=== PATIENT | male | born 1990 | race Two or more races ===

== ENCOUNTER 2024-10-13 10:54 | Outpatient (AMB) | payer MEDICARE, MEDICAID, SELFPAY ==
--- NOTE | 2024-10-13 11:03 | MHC.PC.OV ---
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 Allergies amoxicillin Allergy (Unknown, Verified 10/13/24 11:43) Hives and throat closure lorazepam [Ativan] Allergy (Unknown, Verified 10/13/24 11:43) Vomiting penicillin V Allergy (Unknown, Verified 10/13/24 11:43) Throat closure and rash Amoxicillin Allergy (Unknown, Uncoded 10/13/24 11:43) Throat closure and hives Ativan Allergy (Unknown, Uncoded 10/13/24 11:43) Vomiting Penicillin Allergy (Unknown, Uncoded 10/13/24 11:43) Rash and throat closure Medication List - Last Reconciled 10/13/24 by Zaki Franco CNP No Known Home Meds Tobacco use date assessed: 10/13/24 Dental Screening Dental Screen Date: 10/13/24 Did you have a dental visit in the last 12 months?: No Did you have a dental problem in the last 6 months where you did not have access to dental care?: No Was dental information given to patient?: Yes HPI HPI Comments History of Present Illness Details 34-year-old male presents to establish care. He notes that he was on medication for bipolar disorder since he was 5 years ago. However, he has not been on medications for the past 10 years and his bipolar symptoms have been well controlled. Prior PCP? - [place]. Nevarez, [facility] [place] Last office visit/CPE/labs - 9-10 years ago Acute issue(s) - Acid reflux. Reports frequent acid reflux which is refractory to OTC remedy. - He reports painless skin tag to his left lower back which he wants remove. Past Medical History - Congenital heart murmur, acid reflux, bipolar disorder Surgical History - Torn ligament removal in left knee Family History - Mom: COPD, diabetes, hyperlipidemia, hypertension - MGM: Diabetes, hyperlipidemia, hypertension, skin cancer - PGF: Alcoholism, skin cancer - MGF: Myocardial infarction, substance abuse Social History - Smokes 4-5 cigarettes daily, he has been smoking for 23 years, quit x 1 year in 2018. Vape nicotine and THC occasionally. Drinks alcohol occasionally, last drink was in 06/17/2024. Occasional use of cocaine intranasally - Has been making healthy dietary choices. Walks regularly. Generally sleep well Health maintenance - Last eye exam was more than 10 years ago. Referred to Ophthalmology for routine eye care - Last dental visit was over 10 years ago; encouraged to schedule an appointment with his dentist for routine dental care - Last tetanus vaccine was more than 10 years ago; received Tdap vaccine today - Has not been vaccinated for the flu this season; declines vaccination [facility] Family History (Updated 10/13/24 @ 11:15 by Carly Leonard MA) Mother Hypertension Hyperlipemia Diabetes COPD (chronic obstructive pulmonary disease) Maternal Grandmother Hypertension Hyperlipemia Diabetes Skin cancer Paternal Grandfather Skin cancer Alcoholism Maternal Grandfather Heart attack Substance abuse Social History (Updated 10/13/24 @ 11:16 by Carly Leonard MA) Housing: Apartment Alcohol intake: current Patient Tobacco Use Status: Current everyday Tobacco user Tobacco use type: Cigarette Cigarette Packs Per Day: 0.75 Cigarettes Per Day: 5 Years Smoked: 23 e-Cigarette/Vaping Use: Currently Using Second Hand Smoke Exposure: No Substance Use Type: Crack/Cocaine and Marijuana service: No Current occupational status: employed 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 1. Little interest or pleasure in doing things: not at all 2. Feeling down, depressed, or hopeless: not at all 3. Trouble falling or staying asleep, or sleeping too much: not at all 4. Feeling tired or having little energy: not at all 5. Poor appetite or overeating: not at all 6. Feeling bad about yourself - or that you are a failure or have let yourself or your family down: not at all 7. Trouble concentrating on things, such as reading the newspaper or watching television: not at all 8. Moving or speaking so slowly that other people could have noticed. Or the opposite - being so fidgety or restless that you have been moving around a lot more than usual: not at all 9. Thoughts that you would be better off or of hurting yourself in some way: not at all Total score: 0 Depression Screening Interpretation: Negative Depression Screening Done: Yes Source: Developed by Drs. Dawit Cueto, Esther Matthews, Andrew Barfield and colleagues, with an educational candelaria from [employer]. Thrive Questionnaire Date Thrive assessed: 10/13/24 I am a: Patient What is your living situation today?: I have a steady place to live Within the past 12 months, did the food you bought not last and you didn't have the money to get more?: Sometimes True Within the past 12 months, did you worry whether your food would run out before you got money to buy more?: Sometimes True Do you have trouble paying for medicines?: No Do you have trouble getting transportation to medical appointments?: No Do you have trouble paying your heating and electricity bill?: No Do you have trouble taking care of your child, family member or friend?: No Do you have trouble with day-to-day activities such as bathing, preparing meals, shopping, managing finances, etc.?: No Are you currently unemployed and looking for a job?: No Are you interested in more education?: No Please select the resources that you would like help with: None Currently or been in a relationship where the following occur: No concerns reported and I choose not to answer THRIVE Score: 2 AUDIT C Alcohol Use Questionnaire (AUDIT-C) 1. How often do you have a drink containing alcohol?: Monthly or less 2. How many drinks containing alcohol do you have on a typical day when you are drinking?: 5 or 6 3. How often do you have six or more drinks on one occasion?: Less than monthly Total Score: 4 Score Reviewed/Action Taken: Yes DWIGHT-7 AMB Questionnaire DWIGHT-7 Date DWIGHT - 7 assessed: 10/13/24 Feeling nervous, anxious, or on edge: 0 = Not at all Not being able to stop or control worryin = Not at all Worrying too much about different things: 0 = Not at all Trouble relaxin = Not at all Being so restless that it is hard to sit still: 0 = Not at all Becoming easily annoyed or irritable: 0 = Not at all Feeling afraid as if something awful might happen: 0 = Not at all Total DWIGHT-7 score (0-4 normal; 5-9 mild; 10-14 moderate; 15-21 severe): 0 Source: Developed by Drs. Dawit Cueto, Esther Matthews, Andrew Barfield and colleagues, with an educational candelaria from [employer]. DWIGHT-7 Assessment Billing DWIGHT-7 Assessment Tool: DWIGHT-7 Assessment 73923 Review of Systems Const Details: Denies chills, Denies fatigue, Denies fever(s), Denies headache(s) and Denies weakness HEENT Denies change in vision, Denies dizziness, Denies headache(s), Denies hearing loss, Denies nasal congestion, Denies sinus pain, Denies sinus pressure and Denies sore throat Card Denies chest pain, Denies lightheadedness, Denies dyspnea and Denies other (palpitations) Resp Denies cough, Denies dyspnea and Denies wheezing GI Denies abdominal pain, Denies melena, Denies hematochezia, Denies change in bowel habits, Denies dyspepsia and Denies nausea Denies hematuria and Denies dysuria Musc Denies abnormal gait, Denies myalgias, Denies arthralgias, Denies numbness and Denies tingling Skin/Breast Reports skin tag, Denies rash, Denies unusual bruising and Denies wounds Neuro Denies abnormal gait, Denies dizziness, Denies headache(s), Denies memory loss, Denies numbness, Denies Sensory deficit (Neuro), Denies tingling and Denies weakness Psych Denies anxiety, Denies depression and Denies memory loss Endo Denies cold intolerance, Denies fatigue, Denies heat intolerance, Denies polydipsia and Denies polyuria Carter/Lymph Denies easy bleeding and Denies easy bruising Aller/Immun Denies wheezing Physical exam (Primary Care) Vital Signs: Last Vital Signs Temp 97.9 F 10/13/24 11:17 Pulse 59 10/13/24 11:17 Resp 14 10/13/24 11:17 BP 122/80 10/13/24 11:17 Pulse Ox 95 10/13/24 11:17 Oxygen Delivery Method Room Air 10/13/24 11:17 BMI result Body Mass Index 36.2 Tobacco/Smoking Status: Tobacco use Status Tobacco use date assessed 10/13/24 10/13/24 11:20 Patient Tobacco Use Status Current everyday Tobacco 10/13/24 11:20 Tobacco use type Cigarette 10/13/24 11:20 e-Cigarette/Vaping Use Currently Using 10/13/24 11:20 PHQ-9: PHQ-9 Score PHQ-9: Total score 0 10/13/24 13:10 Depression Screening Interpretation: Negative Thrive Assessment: Date of Thrive Assessment Date Thrive assessed 10/13/24 10/13/24 11:20 Currently or been in a relationship where the following occur: No concerns reported and I choose not to answer Const Other: General: no acute distress, well developed, alert and awake Nutritional Appearance: well nourished Orientation/consciousness: patient oriented x3 HENMT Head: Yes normocephalic and Yes atraumatic Ears: hearing grossly normal bilaterally and TM's normal bilaterally General nose exam: Normal external nose present and Normal nares present Mouth: Normal oral and palatal mucosa present and moist mucous membranes Teeth and gingiva: dentition normal Throat: Yes oropharynx normal Eyes Pupils: Equal, round and reactive pupils present and Pupil accommodation reflex normal EOM: EOMs intact bilaterally Neck Neck: Yes normal visual inspection, Yes no lymphadenopathy and Yes trachea midline Thyroid: Thyroid normal Carotids: no bruits Lymphatic: no lymphadenopathy noted Chest Chest palpation & inspection: normal inspection of the chest Resp Effort & Inspection: normal respiratory effort Auscultation: clear to auscultation bilaterally Cardio Rate: regular rate Rhythm: regular rhythm Heart sounds: S1 normal heart sound present, S2 normal heart sound present, no gallops, no murmurs and no rubs Bruits: no abdominal aortic bruits and no carotid bruits GI Palpation (GI): No Abdominal aortic bruit present, Soft to palpation, nontender, No hepatosplenomegaly present and No Rebound tenderness present Auscultation: normal bowel sounds General: Yes no CVA tenderness Back/Spine/Pelvis Back: no CVA tenderness Cervical Spine: cervical ROM normal and No Cervical spine tenderness Thoracic/Lumbar Spine: thoraco-lumbar ROM normal, No pain with thoraco-lumbar ROM, No thoracic spinal tenderness and No lumbar spinal tenderness Skin General: warm and dry. Normal skin color. Normal skin turgor Lesions: Moderate, round, soft, painless skin tag to left lower back Rashes: no rashes Trauma: no lacerations or abrasions Wounds: no wounds Nails: normal Neuro General: patient oriented x3, gait normal and CN's II-XI intact bilaterally Cranial nerves: Yes Equal, round and reactive pupils present Cognition (Neuro): normal cognition Gait exam (Neuro): Normal gait present Motor exam (neuro): 5/5 motor strength present throughout Sensory Exam: No Sensory deficit (Neuro) Deep tendon reflexes (DTR's): Right patellar reflex intensity grade: 2+ and Left patellar reflex intensity grade: 2+ Extrem General: Yes normal to inspection, No edema and No calf tenderness Psych Appearance: grossly normal Affect: normal affect Attitude: cooperative Thought process: Normal thought process present Immunizations Boostrix Tdap 2.5 Lf unit-8 mcg-5 Lf/0.5 mL intramuscular syringe Performing Provider: Zaki Franco CNP Performing Location: [facility] [place] [facility] Administered by: Lyn Sung RN on 10/13/24 13:08 Dose Route Admin Location Dispensed Lot Number Expiration Date [facility] Director Of Marketing Analytics 0.5 mL IM Left Deltoid 0.5 mL [id number] 06/26/26 [id number] Quisic VIS Given Date VIS Provided VIS Publication Date 10/13/24 Single Vaccine 21 Eligibility Eligibility Date Funding Source Not [facility] Eligible 10/13/24 Private Administration Comments: Vaccine administered by medical hospital sales Carly Leonard under nurse supervision. Coding Level of Care Code New Pt Level 4 (28960) New Pt Prev Care 18-39yr(88657 Diagnoses Normal physical examination, routine Z00.00 Bipolar disorder F31.9 Acid reflux K21.9 Skin lesion L98.9 Smoking 1/2 pack a day or less F17.210 Engages in vaping Z72.89 Obesity (BMI 30-39.9) E66.9 Eye exam, routine Z01.00 Laboratory tests ordered as part of a complete physical exam (CPE) Z00.00 Additional Codes DWIGHT-7 Assessment Billing - DWIGHT-7 Assessment Tool: DWIGHT-7 Assessment 72752 ([id number]) Assessment & Plan Assessment & Plan (1) Normal physical examination, routine: Code(s): Z00.00 - Encounter for general adult medical examination without abnormal findings Category: Medical Plan: No significant functional limitation noted. Continue current treatment regimen. Routine exercise and healthy diet encouraged. Perform lab work and follow-up for telehealth visit in 2-3 weeks for labs review. Return sooner with symptoms or concerns. Verbalized understanding and agreed with the plan. (2) Bipolar disorder: Code(s): F31.9 - Bipolar disorder, unspecified Category: Medical Plan: He notes that he was on medication for bipolar disorder since he was 5 years ago. However, he has not been on medications for the past 10 years and his bipolar symptoms have been well controlled. PHQ-9 and DWIGHT-7 scores are normal. Healthy diet encouraged. Follow-up as needed. Verbalized understanding and agreed with the plan. (3) Acid reflux: Code(s): K21.9 - Gastro-esophageal reflux disease without esophagitis Category: Medical Plan: Reports frequent acid reflux which is refractory to OTC remedy. Advised to maintain a healthy diet and avoid fatty or greasy foods. Omeprazole 20 mg daily ordered; advised to take as prescribed; instructed on the risks, benefits, and potential adverse reactions of the medication. Follow-up with worsening or new symptoms. Verbalized understanding and agreed with the treatment plan. (4) Skin lesion: Code(s): L98.9 - Disorder of the skin and subcutaneous tissue, unspecified Category: Medical Plan: Moderate, round, soft, painless skin tag to left lower back. He has family history of skin cancer. Referred to dermatology. (5) Smoking 1/2 pack a day or less: Code(s): F17.210 - Nicotine dependence, cigarettes, uncomplicated Category: Social Hx Plan: He smokes 4-5 cigarettes daily and has been smoking for 23 years. He quit x 1 year in 2018. He also vape nicotine and THC occasionally. Instructed on the health risks and complications of cigarette smoking and vaping nicotine and THC. Smoking and vaping cessation encouraged. Also encouraged to stop cocaine use. Declines medication treatment for nicotine use at this time. Advised to follow-up as needed. Verbalized understanding and agreed with the plan. (6) Engages in vaping: Code(s): Z72.89 - Other problems related to lifestyle Category: Medical Plan: Plan as above. (7) Obesity (BMI 30-39.9): Code(s): E66.9 - Obesity, unspecified Category: Medical Plan: He currently weighs 245 lb, BMI is 36.2. Declines referral to weight management or mortgage collector/dietitian. He notes that he has been making lifestyle changes and has lost significant amount of weight over the past years. He weighed over 400 lb 5 years ago. Healthy diet and routine exercise encouraged. Follow-up as needed. Verbalized understanding and agreed with the plan. (8) Eye exam, routine: Code(s): Z01.00 - Encounter for examination of eyes and vision without abnormal findings Category: Medical Plan: Last eye exam was more than 10 years ago. Referred to Ophthalmology for routine eye care. (9) Laboratory tests ordered as part of a complete physical exam (CPE): Code(s): Z00.00 - Encounter for general adult medical examination without abnormal findings Category: Medical Plan: Fasting labs ordered as part of a complete physical exam. Advised to fast for at least 10 hours before getting labs drawn. May drink water Verbalized understanding and agreed with treatment plan. Orders: Orders Complete Blood Count Auto Diff Today Z00.00 - Encounter for general adult medical examination without abnormal findings TSH reflex Free T4 Today Z00.00 - Encounter for general adult medical examination without abnormal findings TDaP Immunization Today Z23 - Encounter for immunization Comprehensive [place]. Panel Fast Today Z00.00 - Encounter for general adult medical examination without abnormal findings Lipid Panel Today Z00.00 - Encounter for general adult medical examination without abnormal findings Microalbumin, Random (w Creat) Today Z00.00 - Encounter for general adult medical examination without abnormal findings UA CC w/rflx Micro + Cult Today Z00.00 - Encounter for general adult medical examination without abnormal findings Vitamin D 25-OH Total Today Z00.00 - Encounter for general adult medical examination without abnormal findings Referrals Dermatology Referral L98.9 - Disorder of the skin and subcutaneous tissue, unspecified Ophthalmology Referral Z01.00 - Encounter for examination of eyes and vision without abnormal findings Medications: New omeprazole 20 mg PO DAILY 30 days 30 caps 3RF
[2024-10-13 11:17] VITALS: BP 122/80; PULSE 59; RESP 14; TEMP 36.6; O2SAT 95; BMI 36.2
--- OUTSIDE RECORDS SUMMARY | 2024-10-13 12:39 | XMS_ITS | Clinical Summary ---
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 Role Phone Unavailable Primary Care Provider Unavailabl e Allergies Active Allergy Reactions Criticality Noted Date Comments Penicillin G Hives 11/08/2022 Medications No known medications Social History Tobacco Use Types Packs/Day Years Used Date Smoking Tobacco: Former Cigarettes 0.3 0.5 Passive Smoke Exposure: Past Smokeless Tobacco: Former Tobacco Cessation:Counseling Given: Not Answered Alcohol Use Standard Drinks/Week Comments Never 0 (1 standard drink = 0.6 oz pur e alcohol) Sex and Gender Information Value Date Recorded Sex Assigned at Male 11/08/2022 12:55 PM EDT Legal Sex Male 12:51 PM EDT Gender Identity Male 11/08/2022 12:55 PM EDT Sexual Orientation Choose not to disclose 2022 12:55 PM EDT Plan of Treatment Health Maintenance Due Date Last Done Comments Dental Oral Exam 1990 Dental Prophylaxis 1990 Dental X-Ray: Bitewings 1990 Depression Screening 1990 HIV Screening 1990 SDOH Screening 1990 Alcohol/Substance Use Screening 2002 Family Planning (PISQ) 2005 Hepatitis C Screening 2008 DTaP/Tdap/Td Vaccines (1 - Tdap) 2009 Hepatitis B Vaccines (1 of 3 - 19+ 3-dose series) 2009 Tobacco Screening 11/09/2023 11/08/2022 COVID-19 Vaccine ( - 2023-2 5 season) 2024 Influenza Vaccine (#1) 2024 Dental X-Ray: Full Mouth 11/09/2025 11/08/2022 Zoster Vaccines (1 of 2) 2040 RSV Patients and Pa tients Aged 60 years or older (1 - 1-dose 75+ series) 2065 HIB Vaccines Aged Out No longer eligi ble based on patient's age to complete this topic HPV Vaccines Aged Out No longer eligi ble based on patient's age to complete this topic Hepatitis A Vaccines Aged Out No long er eligible based on patient's age to complete this topic IPV Vaccines Aged Out No longer eligi ble based on patient's age to complete this topic Meningococcal Vaccine Aged Out No ceasar pati eligible based on patient's age to complete this topic Pneumococcal Vaccine: Pediat rics (0 to 5 Years) and At-Risk Patients (6 to 49) Years) Aged Out No longer elig ible based on patient's age to complete this topic RSV under 20 months Aged Out No longe r eligible based on patient's age to complete this topic Rotavirus Vaccines Aged Out No longer eligible based on patient's age to complete this topic Procedures Procedure Name Priority Date/Time Associated Diagnosis Comments PANORAMIC RADIOGRAPHIC IMAGE Routine 11/08/2022 3:30 PM EDT from Last 3 Months or Most Recently Relevant to Health Maintenance Insurance [facility] MEDICAID STAND ADULT
== END 2024-10-13 13:04 | disposition home or self-care (01) ==
LOC: HO.HMCFM 10:55
PROVIDERS: PCP Nurse Practitioner Family; Visit Provider Nurse Practitioner Family
DX: Z00.00 Encounter for general adult medical examination without abnormal findings (principal); K21.9 Gastro-esophageal reflux disease without esophagitis; E66.9 Obesity, unspecified; F31.9 Bipolar disorder, unspecified; Z68.36 Body mass index [BMI] 36.0-36.9, adult; L98.9 Disorder of the skin and subcutaneous tissue, unspecified; F17.210 Nicotine dependence, cigarettes, uncomplicated; Z72.89 Other problems related to lifestyle; Z23 Encounter for immunization

== ENCOUNTER → 2024-10-13 10:54 | Outpatient (BNVA) | payer MEDICARE, MEDICAID, SELFPAY | PROVIDERS: PCP Nurse Practitioner Family; Visit Provider Nurse Practitioner Family | DX: Z00.01 Encounter for general adult medical examination with abnormal findings (principal); Z23 Encounter for immunization; F31.9 Bipolar disorder, unspecified; K21.9 Gastro-esophageal reflux disease without esophagitis; L98.9 Disorder of the skin and subcutaneous tissue, unspecified; E66.9 Obesity, unspecified; Z68.36 Body mass index [BMI] 36.0-36.9, adult; F17.210 Nicotine dependence, cigarettes, uncomplicated; Z71.6 Tobacco abuse counseling; Z71.3 Dietary counseling and surveillance | CPT/HCPCS: 90471; 90715; 96127; 99202; 99385 ==

== ENCOUNTER 2024-10-19 08:43 | Outpatient (REF) | payer MEDICARE, MEDICAID, SELFPAY ==
--- OUTSIDE RECORDS SUMMARY | 2024-10-19 09:07 | XMS_ITS | Clinical Summary ---
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
[2024-10-19 11:39] LABS: Basophils Absolute Auto 0.1 X10*3/uL (0.0-0.2); Basophils Percent Auto 0.5 % (0-2); Eosinophils Absolute Auto 0.2 X10*3/uL (0.0-0.4); Eosinophils Percent Auto 1.2 % (0-4); Hematocrit 43.8 % (42.0-52.0); Hemoglobin 14.3 g/dl (14.0-18.0); Imm Gran Abs Auto 0.05 X10*3/uL (0.00-0.03); Imm Gran Pct Auto 0.4 % (0.0-0.4); Lymphocytes Percent Auto 16.2 % (20-40); MANUAL DIFF FLAG SCAN; Mean Corpuscular HGB Conc 32.6 g/dl (31.0-36.0); Mean Corpuscular Hemoglobin 30.1 pg (27.0-33.0); Mean Corpuscular Volume 92.2 fL (80.0-98.0); Monocytes Percent Auto 7.7 % (2-11); Neutrophils Absolute Auto 9.2 x10*3/uL (2.0-8.3); PLT CLUMP 1; Red Blood Count 4.75 X10*6/uL (4.60-5.80); Red Cell Distribution Width 13.2 % (11.0-16.0); SCAN SMEAR FLAG 1
[2024-10-19 11:41] LABS: White Blood Count 12.4 X10*3/uL (4.8-10.8)
[2024-10-19 12:01] LABS: Mean Platelet Volume 11.3 fL (9.4-12.4); Platelet Count 228 X10*3/uL (160-400)
[2024-10-19 12:02] LABS: SLIDE REVIEW VERIFIED
[2024-10-19 12:42] LABS: Appearance Urine Clear; Color Urine Yellow; Glucose Urine UA Negative (Negative); Leukocyte Esterase Urine Negative (Negative); Nitrite Urine Negative (Negative); PH 5.5 (5.0-9.0); Specific Gravity - Urine 1.025 (1.005-1.025); Urine Blood Negative (Negative); Urine Ketones Negative (Negative); Urine Protein Negative (Neg-Trace)
[2024-10-19 13:03] LABS: Creatinine Urine 222.64 mg/dL; Microalbum/Creatinine Ratio Ur 5.3 ug/mg cr (<30)
[2024-10-19 13:37] LABS: Alanine Aminotransferase 27 U/L (0-40); Albumin Level 4.3 g/dL (3.5-5.0); Alkaline Phosphatase 83 U/L (39-117); Anion Gap 15 (12-20); Aspartate Amino Transferase 38 U/L (5-37); Bilirubin Total 0.5 mg/dL (0.0-1.0); Blood Urea Nitrogen 15 mg/dL (9-16); Calcium 9.1 mg/dL (8.4-10.2); Carbon Dioxide 24 mmol/L (22-29); Chloride 103 mmol/L (96-108); Cholesterol 145 mg/dL (<200); Estimated Glomerular Filt Rate > 60; Glucose Fasting 88 mg/dL (60-99); HDL Cholesterol 50 mg/dL (>40); LDL Cholesterol Calculated 83 mg/dL (<100); Potassium 4.1 mmol/L (3.3-5.1); Sodium 138 mmol/L (135-145); Total Protein 7.9 g/dL (6.5-8.0); Triglycerides 60 mg/dL (<150)
== END 2024-10-19 08:44 | disposition home or self-care (01) ==
LOC: HO.WFDLDS 08:43
PROVIDERS: Visit Provider Nurse Practitioner Family
DX: Z00.00 Encounter for general adult medical examination without abnormal findings (principal); Z13.6 Encounter for screening for cardiovascular disorders
CPT/HCPCS: 36415; 80053; 80061; 81003; 82043; 82306; 82570; 84443; 85025

== ENCOUNTER 2024-11-23 10:29 | Outpatient (AMB) | payer MEDICARE, MEDICAID, SELFPAY ==
--- NOTE | 2024-11-23 10:24 | MHC.PC.OV ---
Intake Visit Reasons: f/u labs Intake Note: patient here for telehealth follow up for lab review [employer] Required: No Allergies amoxicillin Allergy (Unknown, Verified 11/23/24 10:25) Hives and throat closure lorazepam [Ativan] Allergy (Unknown, Verified 11/23/24 10:25) Vomiting penicillin V Allergy (Unknown, Verified 11/23/24 10:25) Throat closure and rash Amoxicillin Allergy (Unknown, Uncoded 10/13/24 11:43) Throat closure and hives Ativan Allergy (Unknown, Uncoded 10/13/24 11:43) Vomiting Penicillin Allergy (Unknown, Uncoded 10/13/24 11:43) Rash and throat closure Tobacco use date assessed: 11/23/24 Dental Screening Dental Screen Date: 11/23/24 Did you have a dental visit in the last 12 months?: No Did you have a dental problem in the last 6 months where you did not have access to dental care?: No Was dental information given to patient?: No HPI HPI Comments History of Present Illness Details 34-year-old male presents for telehealth visit for review of recent lab results. He offers no complaints and denies acute symptoms at this time. [facility] Family History (Updated 10/13/24 @ 11:15 by Carly Leonard MA) Mother Hypertension Hyperlipemia Diabetes COPD (chronic obstructive pulmonary disease) Maternal Grandmother Hypertension Hyperlipemia Diabetes Skin cancer Paternal Grandfather Skin cancer Alcoholism Maternal Grandfather Heart attack Substance abuse Social History (Updated 10/13/24 @ 11:16 by Carly Leonard MA) Housing: Apartment Alcohol intake: current Patient Tobacco Use Status: Current everyday Tobacco user Tobacco use type: Cigarette Cigarette Packs Per Day: 0.75 Cigarettes Per Day: 5 Years Smoked: 23 Packs Per Year: 17 Packs per year/per ci.75 e-Cigarette/Vaping Use: Currently Using Second Hand Smoke Exposure: No Substance Use Type: Crack/Cocaine and Marijuana service: No Current occupational status: employed 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 Dawit L. Estehr Cueto, Andrew Barfield and colleagues, with an educational candelaria from [employer]. Review of Systems Const Details: Denies chills, Denies fatigue, Denies fever(s), Denies headache(s) and Denies weakness Cardiac Denies chest pain, Denies claudication, Denies leg edema, Denies lightheadedness, Denies palpitations, Denies dyspnea, Denies dyspnea on exertion, Denies orthopnea and Denies other (Loss of consciousness) Resp Denies cough, Denies excessive phlegm production, Denies dyspnea, Denies dyspnea on exertion, Denies snoring and Denies wheezing Physical exam (Primary Care) Tobacco/Smoking Status: Tobacco use Status Tobacco use date assessed 11/23/24 11/23/24 10:27 Patient Tobacco Use Status Current everyday Tobacco 11/23/24 10:27 Tobacco use type Cigarette 11/23/24 10:27 e-Cigarette/Vaping Use Currently Using 11/23/24 10:27 Thrive Assessment: Date of Thrive Assessment Date Thrive assessed 10/13/24 11/23/24 10:27 Const Other: Patient is alert and oriented x3 Telehealth Telehealth Telehealth Platform: Telephone Location of provider rendering services: practice address Location of patient: address on file Patient Identification confirmed using: Name, : Yes Telehealth method: voice only Patient verbally consented to treatment: Yes Patient verbally consented to billing insurance company: Yes Patient informed of any privacy concerns related to visit: Yes Coding Level of Care Code Tele Est Pt Level 3 (12040) Diagnoses Vitamin D deficiency E55.9 Leukocytosis D72.829 Time Spent (min) 15 Assessment & Plan Assessment & Plan (1) Vitamin D deficiency: Code(s): E55.9 - Vitamin D deficiency, unspecified Category: Medical Plan: Recent vitamin-D level is low, 22.0. Vitamin D3 25 mcg daily ordered; advised to take as prescribed. Informed that the sun is a good source of vitamin-D. Advised to perform vitamin-D blood work a few days before his next visit. Follow-up for telehealth visit in 2 months. Return sooner with symptoms or concerns. Verbalized understanding and agreed with treatment plan. (2) Leukocytosis: Code(s): D72.829 - Elevated white blood cell count, unspecified Category: Medical Plan: Recent WBC is elevated, 12.4, lymphocyte slightly elevated, neutrophils and absolute neutrophils are, elevated, lymphocytes are slightly low. Likely related to bacterial infection, physiologic stress, or inflammation. Will recheck CBC and make changes as needed. Follow-up with symptoms or concerns. Verbalized understanding and agreed with the plan. Orders: Orders Complete Blood Count Auto Diff Today D72.829 - Elevated white blood cell count, unspecified Vitamin D 25-OH Total 2 Months E55.9 - Vitamin D deficiency, unspecified Medications: New cholecalciferol (vitamin D3) 25 mcg PO DAILY 90 days 90 tabs 3RF
--- OUTSIDE RECORDS SUMMARY | 2024-11-23 11:44 | XMS_ITS | Clinical Summary ---
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 Role Phone Unavailable Primary Care Provider [...] 1990 HIV Screening 1990 SDOH Screening 1990 Disability Screening 1990 Alcohol/Substance Use Screening 2002 Family Planning (PISQ) 2005 Hepatitis C Screening 2008 DTaP/Tdap/Td Vaccines (1 - Tdap) 2009 Hepatitis B Vaccines (1 of 3 - 19+ 3-dose series) 2009 Tobacco Screening 11/09/2023 11/08/2022 COVID-19 Vaccine (1 - 2023-2 5 season) 2024 Influenza Vaccine (Season Ended) 2025 Dental X-Ray: Full Mouth 11/09/2025 11/08/2022 Zoster [...] patient's age to complete this topic Meningococcal B Vaccine Aged Out No l onger eligible based on patient's age to complete [...] Most Recently Relevant to Health Maintenance Insurance [address] [place] [id number] [facility]ENTAL-[facility] MEDICAID STAND ADULT
== END 2024-11-23 11:09 | disposition home or self-care (01) ==
LOC: HO.HMCFM 10:29
PROVIDERS: PCP Nurse Practitioner Family; Visit Provider Nurse Practitioner Family
DX: E55.9 Vitamin D deficiency, unspecified (principal); D72.829 Elevated white blood cell count, unspecified

== ENCOUNTER → 2024-11-23 10:29 | Outpatient (BNVA) | payer MEDICARE, MEDICAID, SELFPAY | PROVIDERS: PCP Nurse Practitioner Family; Visit Provider Nurse Practitioner Family | DX: Z13.89 Encounter for screening for other disorder (principal) ==

== ENCOUNTER 2024-12-23 09:25 | Outpatient (REF) | payer MEDICARE, MEDICAID, SELFPAY ==
--- OUTSIDE RECORDS SUMMARY | 2024-12-23 09:47 | XMS_ITS | Clinical Summary ---
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
[2024-12-23 11:33] LABS: MANUAL DIFF FLAG NO
[2024-12-23 11:39] LABS: Hematocrit 43.1 % (42.0-52.0); Hemoglobin 14.3 g/dl (14.0-18.0); Imm Gran Abs Auto 0.05 X10*3/uL (0.00-0.03); Imm Gran Pct Auto 0.5 % (0.0-0.4); Lymphocytes Absolute Auto 1.5 X10*3/uL (1.2-4.9); Mean Corpuscular HGB Conc 33.2 g/dl (31.0-36.0); Mean Corpuscular Hemoglobin 30.4 pg (27.0-33.0); Mean Corpuscular Volume 91.7 fL (80.0-98.0); NRBC Abs Auto 0.000 X10*3/uL (0.0-0.012); NRBC Pct Auto 0.0 /100WBC (0.0-0.2); Platelet Count 341 X10*3/uL (160-400); Red Blood Count 4.70 X10*6/uL (4.60-5.80); White Blood Count 10.6 X10*3/uL (4.8-10.8)
== END 2024-12-23 09:26 | disposition home or self-care (01) ==
LOC: HO.WFDLDS 09:25
PROVIDERS: Visit Provider Nurse Practitioner Family
DX: E55.9 Vitamin D deficiency, unspecified (principal); D72.829 Elevated white blood cell count, unspecified
CPT/HCPCS: 36415; 82306; 85025

== ENCOUNTER 2025-01-25 15:11 | Outpatient (AMB) | payer MEDICARE, MEDICAID, SELFPAY ==
--- NOTE | 2025-01-25 15:05 | A.OFFPC_ITS ---
Intake Visit Reasons: 2 mos telehealth vit d def, leukocytosis Intake Note: Beau presents for a telehealth follow up to his most recent lab results. Allergies amoxicillin Allergy (Unknown, Verified 01/25/25 15:06) Hives and throat closure lorazepam (Ativan) Allergy (Unknown, Verified 01/25/25 15:06) Vomiting penicillin V Allergy (Unknown, Verified 01/25/25 15:06) Throat closure and rash Amoxicillin Allergy (Unknown, Uncoded 01/25/25 15:06) Throat closure and hives Ativan Allergy (Unknown, Uncoded 01/25/25 15:06) Vomiting Penicillin Allergy (Unknown, Uncoded 01/25/25 15:06) Rash and throat closure Tobacco use date assessed: 01/25/25 Dental Screening Dental Screen Date: 01/25/25 Did you have a dental visit in the last 12 months?: No Did you have a dental problem in the last 6 months where you did not have access to dental care?: No Was dental information given to patient?: No HPI HPI Comments History of Present Illness Details 34-year-old male presents for telehealth visit for leukocytosis and vitamin-D deficiency. He notes that he did not take prescribed vitamin D3 25 mcg daily. He has been consuming vitamin D3 rich foods like eggs and milk. He offers no complaints and denies acute symptoms at this time. [facility]PLACED BY [facility] Family History Mother Hypertension Hyperlipemia Diabetes COPD (chronic obstructive pulmonary disease) Maternal Grandmother Hypertension Hyperlipemia Diabetes Skin cancer Paternal Grandfather Skin cancer Alcoholism Maternal Grandfather Heart attack Substance abuse Social History (Updated 01/25/25 @ 15:07 by Carly Leonard MA) Housing: Apartment Alcohol intake: current Patient Tobacco Use Status: Current everyday Tobacco user Tobacco use type: Cigarette Cigarette Packs Per Day: 0.75 Cigarettes Per Day: 5 Years Smoked: 23 Packs Per Year: 17 Packs per year/per ci.75 e-Cigarette/Vaping Use: Currently Using Second Hand Smoke Exposure: No Substance Use Type: Crack/Cocaine and Marijuana service: No Current occupational status: employed 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 Dawit Cueto, Esther Matthews, Andrew Barfield and colleagues, with an educational candelaria from [employer]. Review of Systems Const Details: Denies chills, Denies fatigue, Denies fever(s), Denies headache(s) and Denies weakness Cardiac Denies chest pain, Denies claudication, Denies leg edema, Denies lightheadedness, Denies palpitations, Denies dyspnea, Denies dyspnea on exertion, Denies orthopnea and Denies other (Loss of consciousness) Resp Denies cough, Denies excessive phlegm production, Denies dyspnea, Denies dyspnea on exertion, Denies snoring and Denies wheezing Physical exam (Primary Care) Tobacco/Smoking Status: Tobacco use Status Tobacco use date assessed 01/25/25 01/25/25 15:08 Patient Tobacco Use Status Current everyday Tobacco 01/25/25 15:08 Tobacco use type Cigarette 01/25/25 15:08 e-Cigarette/Vaping Use Currently Using 01/25/25 15:08 Thrive Assessment: Date of Thrive Assessment Date Thrive assessed 10/13/24 01/25/25 15:08 Const Other: Patient is alert and oriented x3. Telehealth Telehealth Telehealth Platform: Telephone Location of provider rendering services: practice address Location of patient: address on file Patient Identification confirmed using: Name, : Yes Telehealth method: voice only Patient verbally consented to treatment: Yes Patient verbally consented to billing insurance company: Yes Patient informed of any privacy concerns related to visit: Yes Coding Level of Care Code Tele New Pt Level 3 (40327) Diagnoses Vitamin D deficiency E55.9 Leukocytosis D72.829 Time Spent (min) 15 Assessment & Plan Assessment & Plan (1) Vitamin D deficiency: Code(s): E55.9 - Vitamin D deficiency, unspecified Category: Medical Plan: He notes that he did not take prescribed vitamin D3 25 mcg daily. He has been consuming vitamin D3 rich foods like eggs and milk. Recent vitamin-D level is normal, 33.3. Declines vitamin D3 supplement and notes he will continue with dietary supplement that a reaching vitamin D3 instead. Informed that the sun is a good source of vitamin D3. Advised to follow-up for an extended physical exam on/after 10/13/2025. Return sooner with symptoms or concerns. Verbalized understanding and agreed with the plan. (2) Leukocytosis: Code(s): D72.829 - Elevated white blood cell count, unspecified Category: Medical Plan: Recent WBC is normal, 10.6. Will monitor CBC periodically or as needed. Verbalized understanding and agreed with the plan
--- OUTSIDE RECORDS SUMMARY | 2025-01-25 15:30 | XMS_ITS | Clinical Summary ---
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
== END 2025-01-25 18:17 | disposition home or self-care (01) ==
LOC: HO.HMCFM 15:11
PROVIDERS: PCP Nurse Practitioner Family; Visit Provider Nurse Practitioner Family
DX: E55.9 Vitamin D deficiency, unspecified (principal); D72.829 Elevated white blood cell count, unspecified